=== PATIENT | female | born 1970 | race Caucasian/White ===

== ENCOUNTER 2022-12-10 08:00 | Outpatient (RCR) | payer BC, SELFPAY | END 2023-05-16 10:00 | disposition home or self-care (01) | LOC: HO.PTCHIC 08:00 | PROVIDERS: PCP Internal Medicine; Visit Provider Orthopaedic Surgery | DX: Z98.890 Other specified postprocedural states (principal) | CPT/HCPCS: 97110; 97112; 97116; 97140; 97161 ==